=== PATIENT | female | born 1995 | race Caucasian/White ===

== ENCOUNTER 2021-05-09 20:06 | Inpatient (IN) | payer SELFPAY ==
[~2021-05-09] VITALS: Ht 154.9 cm; Wt 68.0 kg
[2021-05-09 20:17] VITALS: BP 101/55
--- NOTE | 2021-05-09 20:23 | NUR ---
PT AMBULATED TO RESTROOM WITH EVEN AND STEADY GAIT TO COLLECT URINE SAMPLE.
--- NOTE | 2021-05-09 20:40 | NUR ---
PATIENT AMBUALTED TO BED 7 WITH STEADY GAIT.
[2021-05-09 20:59] LABS: APPEARANCE,URINE CLEAR (CLEAR); BILIRUBIN,URINE NEGATIVE (NEGATIVE); BLOOD, URINE NEGATIVE (NEGATIVE); COLOR,URINE YELLOW (YELLOW); LEUKOCYTE ESTERASE ,URINE NEGATIVE (NEGATIVE); NITRITE, URINE NEGATIVE (NEGATIVE); UGLUCOSE NEGATIVE (NEGATIVE)
--- NOTE | 2021-05-09 21:00 | NUR ---
25 Y/O FEMALE PT CAME IN WITH RLQ PAIN X 2 DAYS. DENIES N/V/D, FEVER, CHILLS, CP OR SOB. PAIN UPON PALPATION WHEN PRESSURE APPLIED. LMP 04/25/21. DENIES S/SX UTI. MED HX: DENIES ALLERGIES: NKA
[2021-05-09 21:04] LABS: BASOPHILS # (AUTO) 0.1 K/uL (0.00-0.22); BASOPHILS % (AUTO) 0.3 % (0.0-2.0); EOSINOPHILS # (AUTO) 0.4 K/uL (0-0.4); EOSINOPHILS % (AUTO) 1.8 % (0.0-4.0); HEMATOCRIT 40.9 % (36-48); HEMOGLOBIN 13.4 g/dL (12.0-16.0); LYMPHOCYTES # (AUTO) 2.5 K/uL (2.5-16.5); LYMPHOCYTES % (AUTO) 12.2 % (20.5-51.1); MEAN CORPUSCULAR HEMOGLOBIN 30 pg (27-31); MEAN CORPUSCULAR HGB CONC 33 g/dL (33-37); MEAN CORPUSCULAR VOLUME 92.3 fL (80-94); MONOCYTES # (AUTO) 1.7 K/uL (0.8-1.0); MONOCYTES % (AUTO) 8.6 % (1.7-9.3); NEUTROPHILS # (AUTO) 15.6 K/uL (1.8-7.7); NEUTROPHILS % (AUTO) 77.1 % (42.2-75.2); PLATELET COUNT (AUTO) 230 K/uL (140-450); RED BLOOD CELL COUNT(AUTO) 4.43 MIL/uL (4.20-5.40); RED CELL DISTRIBUTION WIDTH 13.4 % (11.6-13.7); WHITE BLOOD COUNT (AUTO) 20.2 K/uL (4.8-10.8)
[2021-05-09 21:34] LABS: ALBUMIN 3.7 g/dL (3.4-5.0); ANION GAP 11.3 (8-16); CARBON DIOXIDE 28.9 mmol/L (21-32); CREATININE 0.8 mg/dL (0.6-1.3); POTASSIUM 5.2 mmol/L (3.5-5.1); TOTAL BILIRUBIN 0.4 mg/dL (0.0-1.0)
--- NOTE | 2021-05-09 23:10 | NUR ---
OBTAINED CONSENT FOR CT SCAN WITH CONTRAST, ACKNOWLEDGED AND SIGNED BY THE PT
--- NOTE | 2021-05-09 23:45 | NUR ---
SISTER IS AT BEDSIDE WITH PATIENT
[2021-05-10] MEDS ORDERED: PIPERACILLIN/TAZOBACTAM 3.375 GM in DEXTROSE 5% 50 ML IV ONE (02:05)
[2021-05-10] MEDS ORDERED: NACL 0.9% 1,000 ML IV ONE (02:05)
[2021-05-10] MEDS ORDERED: NACL 0.9% 2,000 ML IV ONE (02:05)
[2021-05-10] MEDS ORDERED: MORPHINE SULFATE 2 MG/ML SYR IVP ONE (02:35)
[2021-05-10] MEDS ORDERED: PIPERACILLIN/TAZOBACTAM 3.375 GM VIAL IV ONE (03:11)
--- NOTE | 2021-05-10 04:00 | NUR ---
Patient appears to be resting comfortably in bed. Vital Signs within normal limits. Respirations even and unlabored.
--- NOTE | 2021-05-10 07:21 | NUR ---
REPORT GIVEN TO RAFI HAMMER. TRANSFER OF CARE AT THIS TIME
[2021-05-10] MEDS ORDERED: ZOLPIDEM 5 MG TAB PO PRN (07:25)
[2021-05-10] MEDS ORDERED: LORazepam 2 MG/ML VIAL IM/IVP PRN (07:25)
[2021-05-10] MEDS ORDERED: MORPHINE SULFATE 2 MG/ML SYR IVP PRN (07:25)
[2021-05-10] MEDS ORDERED: HYDROcodone/APAP 5/325 MG 1 TAB TAB PO PRN (07:25)
[2021-05-10] MEDS: NACL 0.9% 1,000 ML IV SCH ×3 (07:25→16:53)
[2021-05-10] MEDS ORDERED: DOCUSATE SODIUM 100 MG GELCAP PO PRN (07:25)
[2021-05-10] MEDS ORDERED: ONDANSETRON 4 MG/2 ML VIAL IVP PRN (07:25)
[2021-05-10] MEDS ORDERED: ACETAMINOPHEN 325 MG TAB PO PRN (07:25)
[2021-05-10] MEDS ORDERED: SODIUM ZIRCONIUM CYCLOSILICATE 10 GM POWD.PACK PO SCH (10:00)
--- NOTE | 2021-05-10 10:09 | NUR ---
DR STRANGE ORDERED TO REPEAT BMP AND HOLD LOKELMA FOR NOW
[2021-05-10 11:08] LABS: ANION GAP 10.6 (8-16); CARBON DIOXIDE 25.7 mmol/L (21-32); CREATININE 0.7 mg/dL (0.6-1.3); POTASSIUM 4.3 mmol/L (3.5-5.1)
[2021-05-10] MEDS ORDERED: NEOSTIGMINE 1:1000 10 MG/10 ML VIAL ONE (11:30)
[2021-05-10] MEDS ORDERED: DEXAMETHASONE 4 MG/ML VIAL ONE (11:30)
[2021-05-10] MEDS ORDERED: SEVOFLURANE 250 ML BTL INH ONE (11:30)
[2021-05-10] MEDS ORDERED: GLYCOPYRROLATE 0.2 MG/ML VIAL ONE (11:30)
[2021-05-10] MEDS ORDERED: ROCURONIUM 50 MG/5 ML VIAL IV ONE (11:30)
[2021-05-10] MEDS ORDERED: ETOMIDATE 20 MG/10 ML VIAL IVP ONE (11:30)
[2021-05-10] MEDS ORDERED: BUPIVACAINE-MPF/EPI 0.25% 30 ML VIAL INJ ONE (12:07)
[2021-05-10] MEDS ORDERED: fentaNYL citrate 0.05 MG/ML VIAL ONE (12:10)
--- NOTE | 2021-05-10 12:15 | NUR ---
PATIENT HAS BEEN SCREENED AND CATEGORIZED LOW NUTRITION RISK. PATIENT WILL BE SEEN WITHIN 7 DAYS OF ADMISSION. 05/16/[address]
--- NOTE | 2021-05-10 12:21 | NUR ---
PT TAKEN TO SURGERY AT THIS TIME.
--- NOTE | 2021-05-10 12:25 | NUR ---
Patient will be admitted to care of DR STRANGE. Admited to [facility]. Pt brought to OR by JAQUELIN OLIVER. Will go to room 104B. Belongings list completed.
[2021-05-10] MEDS ORDERED: SUGAMMADEX SODIUM 200 MG/2 ML VIAL IV ONE (12:36)
[2021-05-10] MEDS: PIPERACILLIN/TAZOBACTAM 3.375 GM in DEXTROSE 5% 50 ML IV SCH ×2 (13:00→20:39)
[2021-05-10] MEDS ORDERED: ACETAMINOPHEN 100 ML IV ONE ×2 (14:24→14:35)
[2021-05-10] MEDS ORDERED: fentaNYL citrate 0.05 MG/ML VIAL IVP PRN (14:35)
[2021-05-10] MEDS: fentaNYL citrate 0.05 MG/ML VIAL IVP PRN ×2 (14:50→15:10)
[2021-05-10 15:24] LABS: ALBUMIN 3.2 g/dL (3.4-5.0); BILIRUBIN,DIRECT 0.2 mg/dL (0.0-0.3); TOTAL BILIRUBIN 0.6 mg/dL (0.0-1.0)
[2021-05-10 15:28] LABS: CHOL/HDL RATIO 2.1 (1-4.5); FREE T4 (FREE THYROXINE) 0.98 ng/dL (0.76-1.46); PHOSPHORUS 3.5 mg/dL (2.5-4.9)
[2021-05-10 15:30] VITALS: BP 107/62
--- NOTE | 2021-05-10 15:30 | NUR ---
PT BROUGHT IN BY STELLA FROM THE OR, PT IS S/P LAP APPENDECTOMY. PT HAS 3 ABD INCISIONS, ALL SHOW NO S/S OF INFECTION AND IS COVERED IN DERMABOND. PT IS ALERT AND ORIENTED X4, PT IS COMPLAINING OF 9/10 PAIN. WILL MEDICATE PER MD ORDER. MRSA SWAB TAKEN. PT HAS 200 ESTIMATED BLOOD LOSS. PT HAS NO MEDICAL HISTORY. PT HAS A RIGHT ARM 20 G RUNNING NS @100ML. VITAL SIGNS TAKEN AND WNL. ALL SAFETY MEASURES IN PLACE, CALL LIGHT WITHIN REACH. WILL CONTINUE TO MONITOR.
[2021-05-10 15:34] LABS: PROTHROMBIN TIME 10.8 secs (10.8-13.4)
[2021-05-10 15:42] LABS: HEMATOCRIT 38.3 % (36-48); HEMOGLOBIN 12.6 g/dL (12.0-16.0); MEAN CORPUSCULAR HEMOGLOBIN 30 pg (27-31); MEAN CORPUSCULAR HGB CONC 33 g/dL (33-37); PLATELET COUNT (AUTO) 197 K/uL (140-450); RED BLOOD CELL COUNT(AUTO) 4.16 MIL/uL (4.20-5.40); RED CELL DISTRIBUTION WIDTH 13.9 % (11.6-13.7); WHITE BLOOD COUNT (AUTO) 19.9 K/uL (4.8-10.8)
[2021-05-10 15:49] LABS: THYROID STIMULATING HORMONE 1.53 uIU/mL (0.34-3.74)
[2021-05-10 16:00] VITALS: BP 105/56
[2021-05-10 16:14] LABS: LYMPHOCYTES % (MANUAL) 9 % (20-46); MONOCYTES % (MANUAL) 6 % (5-12)
--- NOTE | 2021-05-10 16:19 | NUR ---
MEDICATED FOR PAIN PER MD ORDER. ALL SAFETY MEASURES IN PLACE, WILL CONTINUE TO MONITOR
--- NOTE | 2021-05-10 16:47 | NUR ---
PT IS ASLEEP IN BED WITH NO ACUTE S/S OF DISTRESS. SISTER IS AT BEDSIDE. WILL CONTINUE TO MONITOR.
--- NOTE | 2021-05-10 18:15 | NUR ---
PT IS ASLEEP IN BED WITH NO ACUTE S/S OF DISTRESS, ALL SAFETY MEASURES IN PLACE. CALL LIGHT WITHIN REACH. WILL CONTINUE TO MONITOR.
--- NOTE | 2021-05-10 19:04 | NUR ---
PT IS STABLE AND WILL BE ENDORSED TO [employer] SENIOR EXECUTIVE NURSE FOR CONTINUITY OF CARE. POC DISCUSSED
[2021-05-10 20:00] VITALS: BP 105/51
--- NOTE | 2021-05-10 21:45 | NUR ---
RECEIVED BEDSIDE REPORT FROM DAY RN EARLIER REGARDING THE PATIENT FOR CONTINUITY OF CARE. PATIENT A/A/OX4, MONGOLIAN SPEAKING ONLY. FAMILY AT THE BEDSIDE EARLIER AND AIDE WITH THE TRANSLATION. PATIENT S/P LAP APPY WITH 3 TROCAR SITES WITH DERMA HILARIO ALL C/D/I, NO OOZING NOTED. PATIENT NOT IN ANY DISTRESS AND NO COMPLAIN AT THIS TIME. IVF INFUSING ORDERED. AMBULATED THE PATIENT TO THE BATHROOM AND TOLERATED IT WELL. CALL LIGHT WITHIN REACH. WILL CONTINUE POC.
--- NOTE | 2021-05-10 22:00 | NUR ---
DUE MEDS GIVEN ORDERED. NO ADVERSE DRUG REACTION NOTED. WILL CONTINUE TO OBSERVE THE PATIENT. CALL LIGHT WITHIN REACH.
--- NOTE | 2021-05-11 | NUR ---
PATIENT GOT OUT OF BED TO GO TO THE BATHROOM. PATIENT TOLERATED IT WELL. NO COMPLAIN OF PAIN AT THIS TIME.
[2021-05-11] MEDS: NACL 0.9% 1,000 ML IV SCH ×2 (01:48→13:58)
--- NOTE | 2021-05-11 02:00 | NUR ---
PATIENT ASLEEP AT THIS TIME. VISIBLE CHEST RISE AND FALL NOTED. NOT IN ANY DISTRESS AND NO COMPLAIN AT THIS TIME. SAFETY MEASURES IN PLACE.
[2021-05-11 04:00] VITALS: BP 101/45
--- NOTE | 2021-05-11 04:00 | NUR ---
PATIENT VITAL SIGNS STABLE, AFEBRILE, SATING 96% ON RA. PATIENT NOT IN ANY DISTRESS AND NO COMPLAIN AT THIS TIME. CALL LIGHT WITHIN REACH.
[2021-05-11] MEDS: PIPERACILLIN/TAZOBACTAM 3.375 GM in DEXTROSE 5% 50 ML IV SCH ×3 (04:44→20:19)
[2021-05-11 06:04] LABS: BASOPHILS % (AUTO) 0.1 % (0.0-2.0); HEMATOCRIT 35.3 % (36-48); HEMOGLOBIN 11.7 g/dL (12.0-16.0); LYMPHOCYTES # (AUTO) 1.7 K/uL (2.5-16.5); LYMPHOCYTES % (AUTO) 8.8 % (20.5-51.1); MEAN CORPUSCULAR HEMOGLOBIN 31 pg (27-31); MEAN CORPUSCULAR HGB CONC 33 g/dL (33-37); MEAN CORPUSCULAR VOLUME 92.2 fL (80-94); MONOCYTES # (AUTO) 1.4 K/uL (0.8-1.0); MONOCYTES % (AUTO) 7.4 % (1.7-9.3); NEUTROPHILS % (AUTO) 83.7 % (42.2-75.2); PLATELET COUNT (AUTO) 215 K/uL (140-450); RED BLOOD CELL COUNT(AUTO) 3.83 MIL/uL (4.20-5.40); RED CELL DISTRIBUTION WIDTH 13.2 % (11.6-13.7); WHITE BLOOD COUNT (AUTO) 19.2 K/uL (4.8-10.8)
[2021-05-11 06:10] LABS: ANION GAP 11.1 (8-16); CARBON DIOXIDE 25.8 mmol/L (21-32); CREATININE 0.7 mg/dL (0.6-1.3); MAGNESIUM 1.9 mg/dL (1.8-2.4); POTASSIUM 4.9 mmol/L (3.5-5.1)
--- NOTE | 2021-05-11 06:26 | NUR ---
NO ACUTE EVENTS THROUGHOUT THE NIGHT. PATIENT STABLE. PATIENT NOT IN ANY DISTRESS AND NO COMPLAIN AT THIS TIME. ALL NEEDS ATTENDED. CALL LIGHT WITHIN REACH. WILL ENDORSE THE PATIENT TO THE ONCOMING RN FOR CONTINUITY OF CARE.
--- NOTE | 2021-05-11 07:22 | NUR ---
ENDORSED PATIENT TO JAQUELIN BETTENCOURT FOR CONTINUITY OF CARE. PATIENT STABLE. SIGNING OFF.
--- NOTE | 2021-05-11 08:00 | NUR ---
RECEIVED REPORT FROM CLEANING STAFF SUPERVISOR AT BEDSIDE FOR CONTINUITY OF CARE. PATIENT ALERT AWAKE ORIENTED X4, NOT IN ANY DISTRESS NOTED. DENIES PAIN AT THIS TIME. INITIAL ASSESSMENT INITIATED. WITH IVF ON GOING AND INFUSING WELL. ENCOURAGE PATIENT TO AMBULATE. NEEDS ATTENDED. WILL CONTINUE TO MONITOR.
--- NOTE | 2021-05-11 10:00 | NUR ---
PATIENT WENT TO THE BATHROOM WITH ASSIST.
[2021-05-11 12:00] VITALS: BP 101/64
[2021-05-11 16:00] VITALS: BP 97/56
--- NOTE | 2021-05-11 17:19 | NUR ---
PATIENT AMBULATING IN THE HALLWAY AND TOLERATING WELL. WILL CONTINUE TO MONITOR.
--- NOTE | 2021-05-11 18:51 | NUR ---
PATIENT EATING DINNER, SITTING IN THE CHAIR. DENIES PAIN. PUT ABDOMINAL BINDER. NEEDS ATTENDED. WILL CONTINUE TO MONITOR.
--- NOTE | 2021-05-11 19:32 | NUR ---
REPORT GIVEN AT BEDSIDE FOR CONTINUITY OF CARE. IN STABLE CONDITION.
--- NOTE | 2021-05-11 19:33 | NUR ---
RECEIVED REPORT FROM DAY SHIFT NURSE FOR CONTINUITY OF CARE. PT STABLE, NO SIGNS OF DISTRESS, PT ON RA
--- NOTE | 2021-05-11 20:00 | NUR ---
GAVE ALL SCHEDULED MEDICATIONS. PT STABLE, NO SIGNS OF DISTRESS, NO COMPLAIN OF PAIN AT THIS TIME.
[2021-05-12] MEDS: NACL 0.9% 1,000 ML IV SCH ×2 (00:06→09:25)
--- NOTE | 2021-05-12 02:00 | NUR ---
PATIENT ASLEEP AT THIS TIME. VISIBLE CHEST RISE AND FALL NOTED. NOT IN ANY DISTRESS AND NO COMPLAIN AT THIS TIME. SAFETY MEASURES IN PLACE.
[2021-05-12 04:00] VITALS: BP 103/52
[2021-05-12] MEDS: PIPERACILLIN/TAZOBACTAM 3.375 GM in DEXTROSE 5% 50 ML IV SCH ×2 (04:59→13:25)
[2021-05-12 07:04] LABS: BASOPHILS # (AUTO) 0.1 K/uL (0.00-0.22); BASOPHILS % (AUTO) 0.5 % (0.0-2.0); EOSINOPHILS # (AUTO) 0.3 K/uL (0-0.4); EOSINOPHILS % (AUTO) 2.1 % (0.0-4.0); HEMATOCRIT 32.3 % (36-48); HEMOGLOBIN 10.7 g/dL (12.0-16.0); LYMPHOCYTES # (AUTO) 3.3 K/uL (2.5-16.5); LYMPHOCYTES % (AUTO) 25.9 % (20.5-51.1); MEAN CORPUSCULAR HEMOGLOBIN 30 pg (27-31); MEAN CORPUSCULAR HGB CONC 33 g/dL (33-37); MEAN CORPUSCULAR VOLUME 91.3 fL (80-94); MONOCYTES # (AUTO) 0.9 K/uL (0.8-1.0); MONOCYTES % (AUTO) 7.2 % (1.7-9.3); NEUTROPHILS # (AUTO) 8.2 K/uL (1.8-7.7); NEUTROPHILS % (AUTO) 64.3 % (42.2-75.2); PLATELET COUNT (AUTO) 193 K/uL (140-450); RED BLOOD CELL COUNT(AUTO) 3.54 MIL/uL (4.20-5.40); RED CELL DISTRIBUTION WIDTH 13.4 % (11.6-13.7); WHITE BLOOD COUNT (AUTO) 12.8 K/uL (4.8-10.8)
[2021-05-12 07:18] LABS: ANION GAP 12.8 (8-16); CARBON DIOXIDE 24.9 mmol/L (21-32); CREATININE 0.8 mg/dL (0.6-1.3); POTASSIUM 4.7 mmol/L (3.5-5.1)
[2021-05-12 07:28] LABS: MAGNESIUM 1.9 mg/dL (1.8-2.4); PHOSPHORUS 2.9 mg/dL (2.5-4.9)
--- NOTE | 2021-05-12 07:32 | NUR ---
ENDORSED PATIENT TO JAQUELIN BETTENCOURT FOR CONTINUITY OF CARE. PATIENT STABLE. SIGNING OFF.
[2021-05-12 08:00] VITALS: BP 105/60
--- NOTE | 2021-05-12 08:00 | NUR ---
RECEIVED REPORT FROM PRESS LEADER AT BEDSIDE FOR CONTINUITY OF CARE. PATIENT ASLEEP, AROUSABLE, NOT IN DISTRESS NOTED. WITH IVF ON GOING AND INFUSING WELL. NEEDS ATTENDED. DENIES PAIN AT THIS TIME. WILL CONTINUE TO MONITOR.
--- NOTE | 2021-05-12 09:00 | NUR ---
DR. ESCAMILLA HERE, AND SAID PATIENT CAN BE DC FROM HIS STANDPOINT. WILL CONTINUE TO MONITOR.
[2021-05-12] MEDS ORDERED: METR500T1 PO (11:03)
[2021-05-12] MEDS ORDERED: CIPR500T9 PO (11:03)
--- NOTE | 2021-05-12 14:30 | NUR ---
SEEN BY DR. DOHERTY WITH ORDER TO DC TODAY. WILL CONTINUE TO MONITOR.
--- NOTE | 2021-05-12 15:21 | NUR ---
DISCHARGE PAPERS SIGNED, IV REMOVED. DISCHARGED INSTRUCTION AND PRESCRIPTION GIVEN AND VERBALIZED UNDERSTANDING.
--- NOTE | 2021-05-12 15:34 | NUR ---
PATIENT DC VIA WHEELCHAIR ACCOMPANIED BY THE MOTHER. IN STABLE CONDITION.
== END 2021-05-12 15:45 | disposition home or self-care (01) | DRG 854 ==
LOC: MED 20:06 → MTU 05-10 03:06
PROVIDERS: ADMIT Family Medicine; ATTEND Family Medicine
PROC: 0DTJ4ZZ Resection of Appendix, Percutaneous Endoscopic Approach (ICD-10-PCS; principal; 2021-05-10 15:45)
DX: A41.9 Sepsis, unspecified organism (principal); K35.80 Unspecified acute appendicitis; Z20.822 Contact with and (suspected) exposure to COVID-19; E87.5 Hyperkalemia; K52.9 Noninfective gastroenteritis and colitis, unspecified; D64.9 Anemia, unspecified; E83.51 Hypocalcemia; K66.0 Peritoneal adhesions (postprocedural) (postinfection)
CPT/HCPCS: 36415; 71045; 80048; 80053; 80076; 81003; 81025; 82150; 82374; 83036; 83605; 83690; 83735; 83880; 84100; 84439; 84443; 84484; 85025; 85610; 85730; 87040; 87081; 88304; 96365; 99285; J1100; J2270; J2543; J2710; J3010; J3490; J7030; J7060; Q9967